=== PATIENT | male | born 1945 | race American Indian/Alaskan Native ===

== ENCOUNTER 2018-07-08 14:53 | Emergency (ER) | payer MEDICARE ==
[2018-07-08] MEDS ORDERED: CATAPRES PO ONE ×2 (16:15→18:36)
[2018-07-08 16:30] LABS: BUN/Creatinine Ratio 20; Blood Urea Nitrogen 14 mg/dL (9-20); Calcium 9.5 mg/dL (8.4-10.2); Hemolysis Index 29
[2018-07-08] MEDS ORDERED: K-DUR PO ONE (16:50)
[2018-07-08 16:51] LABS: Hematocrit 45.9 % (35.5-45.6); Hemoglobin 15.1 gm/dl (11.8-15.2); Mean Corpuscular HGB Conc 33 % (32-34); Mean Corpuscular Volume 95 fl (84-94); Platelet Count 275 K/mm3 (140-440); Red Blood Count 4.86 M/mm3 (3.65-5.03); Red Cell Distribution Width 15.3 % (13.2-15.2)
[2018-07-08 16:54] LABS: Lymphocytes % (Auto) 15.3 % (13.4-35.0); Monocytes % (Auto) 8.3 % (0.0-7.3)
[2018-07-08 16:55] LABS: Basophils # (Auto) 0.1 K/mm3 (0.0-0.1); Basophils % (Auto) 0.9 % (0.0-1.8); Eosinophils # (Auto) 0.1 K/mm3 (0.0-0.4); Lymphocytes # (Auto) 1.1 K/mm3 (1.2-5.4); Monocytes # (Auto) 0.6 K/mm3 (0.0-0.8)
--- NOTE | 2018-07-08 17:23 | Emergency Department Report ---
ED General Adult HPI - General Chief complaint: High BP Stated complaint: HBP Time Seen by Provider: 07/08/18 15:51 Source: patient Mode of arrival: Ambulatory Limitations: No Limitations - History of Present Illness Initial comments: 73-year-old male with a past medical history hypertension, dementia, rectal cancer status post colostomy, chronic back pain presents to the hospital with complaints of elevated blood pressure. Patient is asymptomatic. He denies headache, blurred vision, chest pain, shortness of breath, or focal weakness. Home health nurse checked his pressure and symptoms to the hospital because it was high. Patient states the blood pressures is always high. He is compliant with his verapamil 240 mg daily and hydralazine 25 mg twice a day with last dose of meds this am. Severity scale (0 -10): 0 - Related Data Home Medications Medication Instructions Recorded Confirmed Last Taken FLUoxetine HCL 20 mg PO DAILY 07/08/18 07/08/18 Unknown Previous Rx's Medication Instructions Recorded Last Taken Type Verapamil ER [Calan SR] 240 mg PO HS #60 tablet 07/29/15 Unknown Rx traMADol [Ultram 50 MG tab] 50 mg PO Q6HR PRN #20 tablet 10/19/15 Unknown Rx hydrALAZINE 25 mg PO TID #90 07/08/18 Unknown Rx Allergies Allergy/AdvReac Type Severity Reaction Status Date / Time No Known Allergies Allergy Verified 08/13/15 13:01 ED Review of Systems ROS: Stated complaint: HBP Other details as noted in HPI Comment: All other systems reviewed and negative ED Past Medical Hx - Past Medical History Hx Hypertension: Yes Hx Dementia: Yes Additional medical history: chronic back pain, left side colostomy, right ankle fracture, chronic right shoulder pain - Surgical History Past Surgical History?: Yes Additional Surgical History: COLON RESECTION; COLOSTOMY. hernia repair - Social History Smoking Status: Former Smoker Substance Use Type: Alcohol - Medications Home Medications: Home Medications Medication Instructions Recorded Confirmed Last Taken Type Verapamil ER [Calan SR] 240 mg PO HS #60 tablet 07/29/15 07/08/18 Unknown Rx traMADol [Ultram 50 MG tab] 50 mg PO Q6HR PRN #20 tablet 10/19/15 07/08/18 Unknown Rx FLUoxetine HCL 20 mg PO DAILY 07/08/18 07/08/18 Unknown History hydrALAZINE 25 mg PO TID #90 07/08/18 Unknown Rx ED Physical Exam - General Limitations: No Limitations - Other Other exam information: General: No limitations, patient is alert in no acute distress Head exam: Atraumatic, normocephalic Eyes exam: Normal appearance ENT: Moist mucous membrane Neck exam: Normal inspection, full range of motion, no meningismus nontender Respiratory exam: Clear to auscultation bilateral, no wheezes, rales, crackles Cardiovascular: Normal rate and rhythm, normal heart sounds Abdomen: Soft, nondistended, and nontender, with normal bowel sounds, no rebound, or guarding. Colostomy, surgical scar Extremity: Full range of motion normal inspection no deformity Back: Normal Inspection, full range of motion, no tenderness Neurologic: Alert, cranial nerves intact, no motor or sensory deficit Psychiatric: normal affect, normal mood Skin: Warm, dry, intact ED Course Vital Signs 07/08/18 07/08/18 07/08/18 15:17 16:51 17:49 Temperature 98.6 F Pulse Rate 84 84 Respiratory 16 16 Rate Blood Pressure 216/103 202/105 Blood Pressure 189/111 [Left] O2 Sat by Pulse 95 95 Oximetry 07/08/18 07/08/18 18:44 19:25 Temperature Pulse Rate Respiratory Rate Blood Pressure 210/89 Blood Pressure 201/100 [Left] O2 Sat by Pulse Oximetry ED Medical Decision Making - Lab Data Result diagrams: 07/08/18 15:57 07/08/18 15:57 Lab Results 07/08/18 07/08/18 Range/Units 15:57 15:57 WBC 7.3 (4.5-11.0) K/mm3 RBC 4.86 (3.65-5.03) M/mm3 Hgb 15.1 (11.8-15.2) gm/dl Hct 45.9 H (35.5-45.6) % MCV 95 H (84-94) fl MCH 31 (28-32) pg MCHC 33 (32-34) % RDW 15.3 H (13.2-15.2) % Plt Count 275 (140-440) K/mm3 Lymph % (Auto) 15.3 (13.4-35.0) % [place] % (Auto) 8.3 H (0.0-7.3) % Eos % (Auto) 1.0 (0.0-4.3) % Baso % (Auto) 0.9 (0.0-1.8) % Lymph # 1.1 L (1.2-5.4) K/mm3 [place] # 0.6 (0.0-0.8) K/mm3 Eos # 0.1 (0.0-0.4) K/mm3 Baso # 0.1 (0.0-0.1) K/mm3 Seg Neutrophils % 74.5 H (40.0-70.0) % Seg Neutrophils # 5.4 (1.8-7.7) K/mm3 Sodium 142 (137-145) mmol/L Potassium 3.2 L (3.6-5.0) mmol/L Chloride 104.7 (98-107) mmol/L Carbon Dioxide 26 (22-30) mmol/L Anion Gap 15 mmol/L BUN 14 (9-20) mg/dL Creatinine 0.7 L (0.8-1.5) mg/dL Estimated GFR > 60 ml/min BUN/Creatinine Ratio 20 % Glucose 102 H (75-100) mg/dL Calcium 9.5 (8.4-10.2) mg/dL - Medical Decision Making pt did not have any change in bp with clonidine 0.1mg po x 2 hydralyzine 25 ordered rec to increase hydralazine to 3 times a day once BP improved Patient remains asymptomatic - Differential Diagnosis hypertensive emergency, asymptomatic hypertension, medication noncompliance Critical Care Time: No Critical care attestation.: If time is entered above; I have spent that time in minutes in the direct care of this critically ill patient, excluding procedure time. ED Disposition Clinical Impression: Uncontrolled hypertension Disposition: DC- TO HOME OR SELFCARE Is pt being admited?: No Does the pt Need Aspirin: No Condition: Stable Instructions: Hypertension (ED) Additional Instructions: Take the medication as prescribed. Follow up with your doctor or the cli eric/doctor provided. Return if symptoms worsen as indicated by your discharge instructions Increase your hydralazine from 25 mg twice a tape to 25 mg 3 times a day Prescriptions: hydrALAZINE 25 mg PO TID #90 Referrals: TERRY MILLIGAN MD [Primary Care Provider] - 3-5 Days your, primary care doctor [Other] - 3-5 Days
[2018-07-08] MEDS ORDERED: APRESOLINE PO ONE (19:32)
[2018-07-08 21:10] VITALS: BP 143/86
== END 2018-07-08 21:22 | disposition home or self-care (01) ==
LOC: ED 14:53
DX: I10 Essential (primary) hypertension (principal); F03.90 Unspecified dementia, unspecified severity, without behavioral disturbance, psychotic disturbance, mood disturbance, and anxiety; Z87.891 Personal history of nicotine dependence
CPT/HCPCS: 36415; 80048; 85025